=== PATIENT | male | born 1955 | race Caucasian/White ===

== ENCOUNTER 2020-06-26 15:31 | Inpatient (IN) | payer BC, OTHER ==
[~2020-06-26] VITALS: Ht 170.2 cm; Wt 94.4 kg
[2020-06-26] MEDS ORDERED: ASPIRIN 81 MG CHEW TAB PO STA (15:49)
[2020-06-26] MEDS ORDERED: ONDANSETRON HCL INJ 2MG/ML 2ML 2 MG/ML VIAL IV STA (15:49)
[2020-06-26] MEDS ORDERED: SODIUM CHLORIDE 0.9% 1000ML 1,000 ML IV STA (15:49)
[2020-06-26] MEDS ORDERED: PANTOPRAZOLE 40 MG 10ML VIAL IV STA (15:49)
[2020-06-26 16:07] LABS: BASOPHILS % 0.4 % (0.0-1.0); EOSINOPHILS # (AUTO) 0.3 (0.0-0.4); EOSINOPHILS % 4.3 % (0.0-6.0); HEMATOCRIT 44.6 % (38.2-49.6); HEMOGLOBIN 14.7 g/dL (14.0-18.0); LYMPHOCYTES # (AUTO) 1.5 (1.0-3.2); LYMPHOCYTES % 22.3 % (18.0-39.1); MEAN CORPUSCULAR HEMOGLOBIN 28.3 pg (28-32); MEAN CORPUSCULAR VOLUME 85.8 fL (81-99); MONOCYTES # (AUTO) 0.6 (0.2-0.8); MONOCYTES % 8.2 % (4.4-11.3); NEUTROPHILS # (AUTO) 4.4 (2.1-6.9); NEUTROPHILS % 64.1 % (38.7-80.0); PLATELET COUNT 231 x10e3/uL (140-360)
[2020-06-26 16:20] LABS: INR 1.01; PROTHROMBIN TIME 13.9 seconds (11.9-14.5)
[2020-06-26 16:21] LABS: PARTIAL THROMBOPLASTIN TIME 28.4 seconds (23.8-35.5)
[2020-06-26 16:30] LABS: ALANINE AMINOTRANSFERASE 12 IU/L (0-55); ALBUMIN 3.8 g/dL (3.5-5.0); ALBUMIN/GLOBULIN RATIO 1.1 (0.8-2.0); ALKALINE PHOSPHATASE 62 IU/L (40-150); ANION GAP 14.5 mmol/L (8-16); BLOOD UREA NITROGEN 32 mg/dL (7-26); BUN/CREATININE RATIO 21 (6-25); CALCIUM 10.8 mg/dL (8.4-10.2); CARBON DIOXIDE 30 mmol/L (22-29); CHLORIDE 102 mmol/L (98-107); CREATINE KINASE 40 IU/L (30-200); CREATININE, SERUM 1.55 mg/dL (0.72-1.25); EST GLOMERULAR FILTRATION RATE 46 ML/MIN (60-); GLUCOSE 257 mg/dL (74-118); LIPASE 430 U/L (8-78); MAGNESIUM 1.5 MG/DL (1.3-2.1); POTASSIUM 3.5 mmol/L (3.5-5.1); SODIUM 143 mmol/L (136-145)
[2020-06-26] MEDS ORDERED: MORPHINE SULFATE INJ 2 MG/ML SYR IV STA (16:51)
[2020-06-26] MEDS ORDERED: SODIUM CHLORIDE 0.9% 50ML 50 ML ONE (17:17)
[2020-06-26] MEDS ORDERED: IOPAMIDOL 370 MG/ML 200 ML INFUS..BTL INJ ONE (17:17)
[2020-06-26 18:01] LABS: CHOL/HDL RATIO 4.2 (3.9-4.7)
[2020-06-26] MEDS ORDERED: MORPHINE SULFATE INJ 2 MG/ML SYR IV PRN (18:15)
[2020-06-26] MEDS ORDERED: DEXTROSE 50% SYRINGE 50 ML IV PRN (18:15)
[2020-06-26] MEDS ORDERED: ONDANSETRON HCL INJ 2MG/ML 2ML 2 MG/ML VIAL IV PRN (18:15)
[2020-06-26] MEDS: SODIUM CHLORIDE 0.9% 1000ML 1,000 ML IV SCH (19:27)
[2020-06-26] MEDS: INSULIN LISPRO 100 UNIT/1 ML 3ML VIAL SQ SCH (20:32)
[2020-06-26] MEDS ORDERED: METFORMIN HCL500 MG PO (20:57)
[2020-06-26] MEDS ORDERED: GLIMEPIRIDE2 MG PO (20:57)
[2020-06-26 21:20] VITALS: BP 125/77
[2020-06-26] MEDS ORDERED: CHOLECALCIFEROL PO (22:26)
[2020-06-26] MEDS ORDERED: SIMVASTATIN20 MG PO (22:26)
[2020-06-26] MEDS ORDERED: MULTI-VITAMIN1 EACH PO (22:26)
[2020-06-26] MEDS ORDERED: TRICOR48 MG PO (22:26)
[2020-06-26] MEDS ORDERED: VITAMIN D3 COM1 EACH PO (22:26)
[2020-06-26] MEDS ORDERED: OMEPRAZOLE40 MG PO (22:26)
[2020-06-26] MEDS ORDERED: ZINC PO (22:26)
[2020-06-26] MEDS ORDERED: CALCIUM PO (22:26)
[2020-06-26] MEDS ORDERED: HYDROCHLOROTHIA25 MG PO (22:26)
[2020-06-26] MEDS ORDERED: RYBELSUS7 MG PO (22:26)
[2020-06-26] MEDS ORDERED: ACTOS15 MG PO (22:26)
[2020-06-26] MEDS ORDERED: STEGLATRO5 MG PO (22:26)
[2020-06-26] MEDS ORDERED: LISINOPRIL10 MG PO (22:26)
[2020-06-26] MEDS ORDERED: ASPIRIN CHEW81 MG PO (22:26)
[2020-06-26 23:57] VITALS: BP 126/78
[2020-06-27] VITALS (7 sets, daily range): BP systolic 118–135; BP diastolic 75–94
[2020-06-27 00:19] LABS: CREATINE KINASE 34 IU/L (30-200)
[2020-06-27] MEDS: SODIUM CHLORIDE 0.9% 1000ML 1,000 ML IV SCH ×2 (04:05→13:20)
[2020-06-27 05:22] LABS: BASOPHILS % 0.7 % (0.0-1.0); EOSINOPHILS # (AUTO) 0.2 (0.0-0.4); EOSINOPHILS % 3.7 % (0.0-6.0); HEMATOCRIT 40.7 % (38.2-49.6); HEMOGLOBIN 13.2 g/dL (14.0-18.0); LYMPHOCYTES # (AUTO) 1.4 (1.0-3.2); LYMPHOCYTES % 22.8 % (18.0-39.1); MEAN CORPUSCULAR HEMOGLOBIN 27.8 pg (28-32); MEAN CORPUSCULAR HGB CONC 32.4 g/dL (31-35); MEAN CORPUSCULAR VOLUME 85.7 fL (81-99); MONOCYTES # (AUTO) 0.5 (0.2-0.8); MONOCYTES % 8.7 % (4.4-11.3); NEUTROPHILS # (AUTO) 3.8 (2.1-6.9); NEUTROPHILS % 63.6 % (38.7-80.0); PLATELET COUNT 165 x10e3/uL (140-360); RED BLOOD COUNT 4.75 x10e6/uL (4.3-5.7)
[2020-06-27 05:47] LABS: ALANINE AMINOTRANSFERASE 11 IU/L (0-55); ALBUMIN 3.3 g/dL (3.5-5.0); ALBUMIN/GLOBULIN RATIO 1.2 (0.8-2.0); ALKALINE PHOSPHATASE 40 IU/L (40-150); AMYLASE 107 U/L (25-125); ANION GAP 13.3 mmol/L (8-16); BLOOD UREA NITROGEN 26 mg/dL (7-26); BUN/CREATININE RATIO 24 (6-25); CALCIUM 9.6 mg/dL (8.4-10.2); CARBON DIOXIDE 27 mmol/L (22-29); CHLORIDE 106 mmol/L (98-107); CHOL/HDL RATIO 4.2 (3.9-4.7); CHOLESTEROL 97 MD/DL (0-199); CREATININE, SERUM 1.09 mg/dL (0.72-1.25); EST GLOMERULAR FILTRATION RATE > 60 ML/MIN (60-); GLUCOSE 140 mg/dL (74-118); HDL CHOLESTEROL 23 MG/DL (40-60); LDL CHOLESTEROL 50 MG/DL (60-130); LIPASE 257 U/L (8-78); POTASSIUM 3.3 mmol/L (3.5-5.1); SODIUM 143 mmol/L (136-145); TRIGLYCERIDES 119 MG/DL (0-149)
[2020-06-27] MEDS ORDERED: DOCUSATE SODIUM 100 MG CAP PO PRN (06:00)
[2020-06-27] MEDS ORDERED: ACETAMINOPHEN 325 MG TAB PO PRN (06:00)
[2020-06-27] MEDS ORDERED: ZOLPIDEM TARTRATE 5 MG TAB PO PRN (06:00)
[2020-06-27 06:18] LABS: CREATINE KINASE 34 IU/L (30-200)
[2020-06-27] MEDS ORDERED: POTASSIUM CHLORIDE 20 MEQ TAB CR PO ONE (06:35)
[2020-06-27] MEDS: INSULIN LISPRO 100 UNIT/1 ML 3ML VIAL SQ SCH ×4 (07:23→21:00)
[2020-06-27] MEDS: PANTOPRAZOLE 40 MG 10ML VIAL IV SCH (08:09)
[2020-06-27] MEDS ORDERED: PANTOPRAZOLE 40 MG 10ML VIAL IV SCH (09:00)
[2020-06-27 12:00] LABS: CREATINE KINASE 31 IU/L (30-200)
[2020-06-28] VITALS: BP 124/79
[2020-06-28] MEDS: SODIUM CHLORIDE 0.9% 1000ML 1,000 ML IV SCH ×3 (01:03→18:27)
[2020-06-28 05:54] LABS: BASOPHILS % 0.5 % (0.0-1.0); EOSINOPHILS # (AUTO) 0.2 (0.0-0.4); EOSINOPHILS % 3.3 % (0.0-6.0); HEMOGLOBIN 12.8 g/dL (14.0-18.0); LYMPHOCYTES # (AUTO) 1.3 (1.0-3.2); LYMPHOCYTES % 23.2 % (18.0-39.1); MEAN CORPUSCULAR HEMOGLOBIN 27.6 pg (28-32); MEAN CORPUSCULAR HGB CONC 32.8 g/dL (31-35); MEAN CORPUSCULAR VOLUME 84.1 fL (81-99); MONOCYTES # (AUTO) 0.4 (0.2-0.8); MONOCYTES % 7.4 % (4.4-11.3); NEUTROPHILS # (AUTO) 3.7 (2.1-6.9); NEUTROPHILS % 65.1 % (38.7-80.0); PLATELET COUNT 186 x10e3/uL (140-360); RED BLOOD COUNT 4.64 x10e6/uL (4.3-5.7); RED CELL DISTRIBUTION WIDTH 13.6 % (11.7-14.4)
[2020-06-28 06:22] LABS: ANION GAP 13.4 mmol/L (8-16); BLOOD UREA NITROGEN 22 mg/dL (7-26); BUN/CREATININE RATIO 24 (6-25); CALCIUM 8.9 mg/dL (8.4-10.2); CARBON DIOXIDE 28 mmol/L (22-29); CHLORIDE 106 mmol/L (98-107); CREATININE, SERUM 0.91 mg/dL (0.72-1.25); EST GLOMERULAR FILTRATION RATE > 60 ML/MIN (60-); GLUCOSE 89 mg/dL (74-118); POTASSIUM 3.4 mmol/L (3.5-5.1); SODIUM 144 mmol/L (136-145)
[2020-06-28] MEDS ORDERED: POTASSIUM CHLORIDE 20 MEQ TAB CR PO ONE (06:55)
[2020-06-28] MEDS: INSULIN LISPRO 100 UNIT/1 ML 3ML VIAL SQ SCH ×3 (07:30→16:30)
[2020-06-28 08:08] VITALS: BP 129/76
[2020-06-28] MEDS: PANTOPRAZOLE 40 MG 10ML VIAL IV SCH (08:38)
[2020-06-28 08:57] VITALS: BP 129/76
[2020-06-28 11:27] VITALS: BP 121/79
[2020-06-28 16:25] VITALS: BP 134/88
== END 2020-06-28 20:04 | disposition home or self-care (01) | DRG 439 ==
LOC: ER 15:40 → ERHOLD 18:18 → INTOOBSV 18:18 → MED/SURG 21:11 → OBSVTOIN 06-28 07:08
PROVIDERS: ADMIT Internal Medicine; ATTEND Internal Medicine
DX: K85.90 Acute pancreatitis without necrosis or infection, unspecified (principal); N17.9 Acute kidney failure, unspecified; R07.89 Other chest pain; K80.20 Calculus of gallbladder without cholecystitis without obstruction; E27.8 Other specified disorders of adrenal gland; E66.9 Obesity, unspecified; Z68.32 Body mass index [BMI] 32.0-32.9, adult; E11.9 Type 2 diabetes mellitus without complications; Z20.828 Contact with and (suspected) exposure to other viral communicable diseases
CPT/HCPCS: 36415; 71045; 74177; 80048; 80053; 80061; 82150; 82550; 82553; 82948; 83036; 83690; 83735; 83880; 84484; 85025; 85379; 85610; 85730; 93005; 93306; 99284; G0378; J2405; J7030; Q9967; U0002